=== PATIENT | female | born 1965 | race Caucasian/White ===

== ENCOUNTER 2018-07-17 10:16 | Emergency (ER) | payer OTHER ==
[~2018-07-17] VITALS: Ht 160 cm; Wt 73.5 kg
[~2018-07-17 10:16] MED LIST: KETO10TA2 PO
[2018-07-17] MEDS ORDERED: IRBESARTAN150 MG PO (10:28)
[2018-07-17] MEDS ORDERED: CLONAZEPAM1 M1 PO (10:28)
[2018-07-17] MEDS ORDERED: WELLBUTRIN SR100 MG PO (10:28)
[2018-07-17] MEDS ORDERED: ADULT ASPIRIN R81 MG PO (10:29)
== END 2018-07-17 12:55 | disposition home or self-care (01) ==
LOC: ER 10:16
DX: S51.811A Laceration without foreign body of right forearm, initial encounter (principal); W25.XXXA Contact with sharp glass, initial encounter; Y93.89 Activity, other specified; Y92.89 Other specified places as the place of occurrence of the external cause; Y99.8 Other external cause status

== ENCOUNTER 2018-07-24 09:23 | Emergency (ER) | payer OTHER ==
[~2018-07-24] VITALS: Ht 160 cm; Wt 73.9 kg
[~2018-07-24 09:23] MED LIST changes: +ADULT ASPIRIN R81 MG PO; +CLONAZEPAM1 M1 PO; +IRBESARTAN150 MG PO; +WELLBUTRIN SR100 MG PO
== END 2018-07-24 21:50 | disposition home or self-care (01) ==
LOC: ER 09:23
DX: Z48.02 Encounter for removal of sutures (principal)